=== PATIENT | female | born 1950 | race Caucasian/White ===

== ENCOUNTER → 2016-08-23 19:34 | Outpatient (CLI) | payer MEDICARE | END | disposition home or self-care (01) | LOC: D.MAMMO 07-27 14:30 | DX: Z12.31 Encounter for screening mammogram for malignant neoplasm of breast (principal) ==

== ENCOUNTER → 2018-01-19 21:26 | Outpatient (CLI) | payer MEDICARE, OTHER | END | disposition home or self-care (01) | LOC: D.MAMMO 12-16 15:30 | DX: Z12.31 Encounter for screening mammogram for malignant neoplasm of breast (principal) ==

== ENCOUNTER → 2018-03-30 08:33 | Outpatient (CLI) | payer MEDICARE, OTHER | END | disposition home or self-care (01) | LOC: D.RAD 08:33 | DX: K21.9 Gastro-esophageal reflux disease without esophagitis (principal); R10.30 Lower abdominal pain, unspecified ==

== ENCOUNTER → 2019-07-05 10:52 | Outpatient (CLI) | payer MEDICARE, OTHER | END | disposition home or self-care (01) | LOC: D.HCCARDIO 10:52 | PROVIDERS: ATTEND Internal Medicine Cardiovascular Disease | DX: I20.9 Angina pectoris, unspecified (principal) ==

== ENCOUNTER → 2020-12-30 15:09 | Outpatient (CLI) | payer MEDICARE, OTHER ==
[2020-05-15 01:34] VITALS: BMI 25.1
[~2020-12-30 15:09] MED LIST: ALBUTEROL SULF8.5 GM INH; AMBIEN5 MG PO; MIRALAX17 GM PO; Vancomycin HCl PO; ZOFRAN4 MG PO
== END | disposition home or self-care (01) ==
LOC: D.US 15:09
PROVIDERS: ATTEND Family Medicine Adult Medicine
DX: M79.662 Pain in left lower leg (principal); M71.22 Synovial cyst of popliteal space [Baker], left knee; R10.2 Pelvic and perineal pain